=== PATIENT | male | born 1990 | race Caucasian/White ===

== ENCOUNTER 2020-07-01 05:07 | Day surgery (SDC) | payer OTHER ==
[2020-06-29 10:57] VITALS: BMI 27.2
[2020-07-01 09:03] VITALS: TEMP 97.8
[2020-07-01 12:45] VITALS: BP 131/67; PULSE 63
== END 2020-07-01 09:20 | disposition home or self-care (01) ==
LOC: JASU-ENDO 05:07
PROVIDERS: ATTEND Internal Medicine Gastroenterology
PROC: 0DJD8ZZ Inspection of Lower Intestinal Tract, Via Natural or Artificial Opening Endoscopic (ICD-10-PCS; principal; 2020-07-01 08:45)
DX: R10.32 Left lower quadrant pain (principal)